=== PATIENT | female | born 1965 | race Hispanic/Latino ===

== ENCOUNTER 2018-04-15 11:49 | Outpatient (CLI) | payer OTHER ==
--- NOTE | 2018-04-19 09:34 | XRay Report ---
CHEST TWO VIEWS: 04/15/18 11:49:00 CLINICAL: Elevated white blood cell count. COMPARISON: none FINDINGS: The heart is normal size. Prominent central pulmonary vessels and bibasal reticular interstitial opacities. Mild blunting of the costophrenic angles, left greater than right. An irregular left upper lobe lung opacity on the frontal view is suspicious for possible tumor. The bones and soft tissues are normal. IMPRESSION: 1. 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 Acute or chronic interstitial pneumonia are possibilities. l2. A suspicious left upper lobe irregular lung opacity. Recommend CT chest if it does not clear on followup chest x-ray. 3. Possible small pleural effusions.
== END 2018-04-15 11:50 | disposition home or self-care (01) ==
LOC: SPVIMAG 11:49
PROVIDERS: ATTEND Family Medicine
DX: J84.89 Other specified interstitial pulmonary diseases (principal); D72.829 Elevated white blood cell count, unspecified; R50.9 Fever, unspecified
CPT/HCPCS: 71046

== ENCOUNTER 2018-04-29 10:39 | Outpatient (CLI) | payer OTHER ==
--- NOTE | 2018-04-29 13:04 | XRay Report ---
XRAY CHEST TWO VIEWS: 04/29/18 10:39:00 CLINICAL: Followup pneumonia. COMPARISON: 04/15/18 FINDINGS: The lungs are normally expanded and significant improvement with decreased bibasal reticular interstitial opacities. The left costophrenic angle has cleared and the previously described left upper lobe perihilar lung opacityhas nearly completely resolved. Normal heart and pulmonary vessels.The bones and soft tissues are unremarkable. IMPRESSION: Interval improvement with near-complete resolution of previously described abnormal lung opacities.Recommend an additional followup chest x-ray in one month.
== END 2018-04-29 10:40 | disposition home or self-care (01) ==
LOC: SPVIMAG 10:39
PROVIDERS: ATTEND Family Medicine
DX: J18.9 Pneumonia, unspecified organism (principal)
CPT/HCPCS: 71046

== ENCOUNTER 2018-05-20 11:11 | Outpatient (CLI) | payer OTHER ==
--- NOTE | 2018-05-24 15:05 | XRay Report ---
ROUTINE CHEST, TWO VIEWS: HISTORY: Cough. This examination is just presented to me for interpretation. There is an IT difficulty with this exam. The trachea, heart, mediastinal contour, lung beckham and bony thorax are unremarkable. IMPRESSION: Unremarkable chest x-ray.
== END 2018-05-20 11:12 | disposition home or self-care (01) ==
LOC: SPVIMAG 11:11
PROVIDERS: ATTEND Family Medicine
DX: R05 Cough (principal)
CPT/HCPCS: 71046